=== PATIENT | male | born 1965 | race Caucasian/White ===

== ENCOUNTER → 2020-08-31 09:33 | Outpatient (BNVA) | payer BC, SELFPAY | PROVIDERS: Visit Provider Family Medicine | DX: Z11.59 Encounter for screening for other viral diseases (principal) | CPT/HCPCS: 87635 ==

== ENCOUNTER 2020-12-10 10:26 | Outpatient (CLI) | payer BC, SELFPAY ==
--- NOTE | 2020-12-10 10:40 | XR_ITS ---
WS: [id number] Left elbow, 3 views, 12/10/2020 Clinical Data: L ELBOW PAIN Comparison: None. Findings: No fractures or dislocations are seen. The radial head is normal. The soft tissues are unremarkable. XR/XR elbow LT min 3V* [id number] Impression: Negative left elbow.
== END 2020-12-10 10:27 | disposition home or self-care (01) ==
PROVIDERS: PCP Family Medicine; Visit Provider Family Medicine
DX: M25.522 Pain in left elbow (principal)
CPT/HCPCS: 73080

== ENCOUNTER 2023-07-19 15:26 | Outpatient (CLI) | payer BC, SELFPAY ==
[2023-07-21 12:05] LABS: Quantiferon Nil 0.01 IU/mL; Quantiferon TB Gold NEGATIVE (NEGATIVE)
== END 2023-07-19 15:27 | disposition home or self-care (01) ==
LOC: LAB 15:30
PROVIDERS: PCP Family Medicine; Visit Provider Dermatology
DX: L40.1 Generalized pustular psoriasis (principal)
CPT/HCPCS: 86480

== ENCOUNTER 2025-06-23 10:49 | Outpatient (CLI) | payer OTHER, SELFPAY | END 2025-06-23 10:50 | disposition home or self-care (01) | PROVIDERS: PCP Family Medicine; Visit Provider Dermatology | DX: Z79.899 Other long term (current) drug therapy (principal) | CPT/HCPCS: 36415; 86480 ==